=== PATIENT | female | born 1995 | race Hispanic/Latino ===

== ENCOUNTER 2016-12-21 17:20 | Inpatient (IN) | payer MEDICAID ==
[~2016-12-21] VITALS: Ht 154.9 cm; Wt 87.5 kg
[2016-12-21] VITALS (9 sets, daily range): BP systolic 115–123; BP diastolic 57–72
--- NOTE | 2016-12-21 17:15 | NUR ---
, EDC 12/30/16, EGA 38 12/30. PREVIOUS C/S X 1. PT HERE FOR CTX STARTING AROUND 0600, MILD, PAIN OF 2/10. COMES AND GOES, AT TIMES EVERY 5-10 MINUTES. NO LOF OR VAG BLEEDING. + MOVEMENT. SISTER AT SIDE AND SUPPORTIVE. 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 OBTAINED WT, HT, UA/DOA AND PT ON EFM. FHT'S CATAGORY 1. SOFT RESTING TONE, MILD CTX, IRREGULAR, THEN EVERY 3-5 MINUTES. UA SHOWS NO PROTIENUREA AT THIS TIME. SVE DONE, CLOSED THICK AND HIGH. UNABLE TO DETERMINE PRESENTING PART. CALLED DR COMER AND UPDATED ON PT CONDITION AND HX. OBTAINED ORDERS FOR IV FLUID BOLUS OF 500 ML THEN TO RUN AT 125 ML/HR. PT INFORMED OF THIS PLAN OF CARE.
[~2016-12-21 17:20] MED LIST: IRON325 M1 PO; LORTAB 5/3255 MG; PRE-NATAL
[2016-12-21 18:10] LABS: URINE BILIRUBIN - DIPSTICK NEGATIVE (NEGATIVE); URINE BLOOD DIPSTICK NEGATIVE (NEGATIVE); URINE CLARITY CLEAR; URINE COLOR YELLOW; URINE GLUCOSE - DIPSTICK NEGATIVE (NEGATIVE); URINE KETONE NEGATIVE (NEGATIVE); URINE NITRITE - DIPSTICK NEGATIVE (Negative); URINE PROTEIN - DIPSTICK NEGATIVE (NEG-TRACE); URINE UROBILINOGEN - DIPSTICK 0.2 E.U./dL (0.2)
[2016-12-21 18:11] LABS: BARBITURATES NEGATIVE (NEGATIVE); COCAINE NEGATIVE (NEGATIVE); METHADONE NEGATIVE (NEGATIVE); OXCYCODONE NEGATIVE (NEGATIVE); TETRAHYDROCANNABIONOL NEGATIVE (NEGATIVE); TRICYLIC ANTIDEPRESSANTS NEGATIVE (NEGATIVE); URINE LEUK ESTERASE SMALL (NEGATIVE)
--- NOTE | 2016-12-21 18:25 | NUR ---
IV SITE INITIATED ORDERED, PATIENT TOLERATED WELL, AND SITE APPEARS HEALTHY WITHOUT PAIN, REDNESS, OR SWELLING.
[2016-12-21 18:40] LABS: URINE SQUAMOUS EPITHELIAL CELL FEW EPI/hpf (0-FEW)
--- NOTE | 2016-12-21 18:45 | NUR ---
REPORTED OFF TO ZOIE MCKEON RN.
--- NOTE | 2016-12-21 18:57 | NUR ---
REPORT RECEIVED FROM PAULA MCCARTNEY RN. PT RESTING IN BED. IV BOLUS INFUSING. NO CONTRACTIONS PALPATED BUT PT STATES "MY STOMACH IS GETTING HARD ONCE IN A WHILE". DOES NOT HAVE PO HYDRATION AT THIS TIME DUE TO POSSIBILITY OF SURGERY FOR REPEAT . PT HAS NO COMPLAINTS. FRIEND AT BEDSIDE.
--- NOTE | 2016-12-21 20:20 | NUR ---
DR. COMER NOTIFIED OF PT STATUS. NEW ORDERS RECEIVED. PT CONTINUES TO HAVE CONTRACTIONS WHILE LAYING ON LEFT SIDE AND IV FLUIDS INFUSING AT 125CC/HR. WILL DO INTERMITTENT MONITORING PER PHYSICIAN ORDERS.
--- NOTE | 2016-12-21 20:43 | NUR ---
PT OFF MONITOR TO USE RESTROOM AND CHANGE OUT HER BED TO A MORE COMFORTABLE ONE. IV CONTINUES INFUSING AT 125CC/HR PER MED PUMP. IV WNL. NO COMPLAINTS. TAKES PO FLUIDS. PLAN OF CARE DISCUSSED WITH PT. PT HAS NO QUESTIONS. SISTER REMAINS AT BEDSIDE.
--- NOTE | 2016-12-21 22:14 | NUR ---
VISTARIL GIVEN FOR SLEEP. SEE E-MAR FOR DETAIL. REMAINS LT SIDED TILT. FETUS VERY ACTIVE WITH REACTIVE STRIP. CONTINUES TO HAVE MILD CONTRACTIONS WHEN ABDOMEN IS PALPATED. VS STABLE. IV CONTINUES TO INFUSE. VOIDED 475 CLEAR YELLOW URINE. ENCOURAGED TO REST AND NOTIFY THIS NURSE IF CONTRACTIONS START GETTING MORE INTENSE. BOYFRIEND AT BEDSIDE.
[2016-12-22] VITALS (15 sets, daily range): BP systolic 102–129; BP diastolic 46–83
--- NOTE | 2016-12-22 01:55 | NUR ---
PT USES RESTROOM. NO COMPLAINTS. STATES HAVING CONTRACTIONS OCCASSIONALLY. FETUS IS ACTIVE.
--- NOTE | 2016-12-22 03:45 | NUR ---
PT USES RESTROOM. STATES CONTRACTIONS ARE STRONGER AND PAIN IS 4/10. CONTRACTIONS ARE PALPATED BY THIS NURSE AND CONTRACTIONS FEEL MILDER THAN THEY WERE EARLY EVENING. FETUS ACTIVE AND REACTIVE STRIP NOTED. PT DENIES VAGINAL BLEEDING, DISCHARGE OR SROM. IV CONTINUES AT 125CC/HR PER MED PUMP. VS STABLE. ROOM IS COLD BUT PT STATES SHE LIKES IT THAT WAY. BOYFRIEND SLEEPING BEDSIDE.
--- NOTE | 2016-12-22 06:36 | NUR ---
PT RESTING IN BED WITH EYES CLOSED. REMAINS STABLE. REPORT READY FOR DAY SHIFT.
--- NOTE | 2016-12-22 07:00 | NUR ---
report received from yaakov overton. patient off efm. lying in bed awake. efm recommenced. abdomen palpate soft, mild with contraction. no vaginal bleeding or leaking of amniotic fluid. patient rates pain with contraction 2/10. ivf of lr infusing. site wnl. plan to wait for mds evaluation. patient voices no concerns. s/o at bedside.
--- NOTE | 2016-12-22 08:00 | NUR ---
dr holloway on unit. reviews fhr tracing. new orders received.
--- NOTE | 2016-12-22 08:30 | NUR ---
blood drawn from [facility] for labs as ordered.
[2016-12-22 08:56] LABS: HEMATOCRIT 30.3 % (37.0-47.0); IMMATURE GRANULOCYTES 0.4 % (0.0-1.0); MEAN CELL VOLUME 86.3 fL CALC (80.0-100.0); MEAN CORPUSCULAR HGB 28.5 pG CALC (26.0-32.0); NEUT# 3.17 thou/uL (2.00-7.15); RED BLOOD COUNT 3.51 mill/uL (4.20-5.60); RED CELL DISTRI WIDTH 14.1 % (11.5-15.5)
[2016-12-22 09:14] LABS: ALKALINE PHOSPHATASE 139 u/l (38-126); ANION GAP 10 (6-22 (CALC)); BILIRUBIN, TOTAL 0.2 mg/dL (0.0-1.4); BUN 4 mg/dL (7-17); BUN/CREATININE RATIO 11 (12-20 (CALC)); CALCIUM 8.9 mg/dL (8.4-10.2); CARBON DIOXIDE 25 mmol/l (22-30); CHLORIDE 106 mmol/l (95-108); CREATININE 0.4 mg/dL (0.5-1.0); GFR > 60 ML/MIN (>=60 (CALC)); GFR FOR AFR.AMER. > 60 ML/MIN (>=60 (CALC)); GLUCOSE 70 mg/dL (65-105); POTASSIUM 3.8 mmol/l (3.5-5.1); SGOT/AST 15 u/l (14-36); SGPT/ALT 23 u/l (9-52); SODIUM 137 mmol/l (137-146); TOTAL PROTEIN 5.7 g/dL (6.3-8.2)
--- NOTE | 2016-12-22 09:35 | NUR ---
patient was already shaved. ivb of lr commenced for preload to or per anesthesia. medicated as per preop orders. estimation manager at bedside.
--- NOTE | 2016-12-22 09:50 | NUR ---
off monitor to void in bathroom and then to or. see delivery room record.
--- NOTE | 2016-12-22 12:10 | NUR ---
PATIENT TO ROOM FROM PACU, ON STRETCHER, ACCOMPANIED BY PACU STAFF. TRANSFERRED TO BED USING Z SLIDER. MADE COMFORTABLE.IVF, CONTINUOUS PULSE OX MONITORING AND SCDS IN PLACE. POSTOP INSTRUCTIONS REVIEWED. PATIENT VERBALISE UNDERSTANDING. S/O AY BEDSIDE. WILL CONTINUE TO MONITOR.
--- NOTE | 2016-12-22 18:36 | NUR ---
SITTING UP IN BED. PERICARE DONE. MADE COMFORTABLE. DENIES PAIN AT THIS TIME. TOLERATING DIET. NO CONCERNS AT THIS TIME. END OF SHIFT REPORT READY.
--- NOTE | 2016-12-22 18:43 | NUR ---
REPORT RECEIVED FROM Deja FLANAGAN RN ON PT STATUS.
--- NOTE | 2016-12-22 19:50 | NUR ---
CONTINUES TO VISIT WITH FAMILY. HAS NO COMPLAINTS. NO DISTRESS NOTED.
--- NOTE | 2016-12-22 20:45 | NUR ---
PT RESTING IN BED HOLDING . TIRADO DRAINS CLEAR YELLOW URINE. IV LR INFUSING PER MED PUMP AT 125CC/HR. SCDS IN PLACE. PT DENIES PAIN OR DISCOMFORT. ABDOMINAL DRESSING CLEAN AND DRY, NO SHADOWING NOTED. LIGHT RUBRA NOTED ON PAIGE PAD. SIGNIFICANT OTHER AT BEDSIDE.
--- NOTE | 2016-12-22 23:00 | NUR ---
PT SITTING IN BED HOLDING . NO COMPLAINTS. STATES BENADRYL HELPED SOME. ROOM MUCH COOLER. BLANKET TAKEN OFF. DENIES PAIN. CALL LIGHT WITHIN REACH, BED IN LOW POSITION AND UPPER SIDE RAILS UP. REMAINS ON HOURLY OXYGEN SATURATIONS.
--- NOTE | 2016-12-23 01:40 | NUR ---
PT RESTING WITH EYES CLOSED. IN CRIB.
[2016-12-23 03:00] VITALS: BP 117/64
--- NOTE | 2016-12-23 05:58 | NUR ---
CBC DRAWN FROM LEFT ANTICUBITAL WITHOUT DIFFICULTY. PT ASSISTED TO RESTROOM. PERICARE DONE BY PT AFTER INSTRUCTED BY NURSE. MOD RUB NOTED ON PAD WITH THREE 1 CM BLOOD CLOTS ON PAD. TOLERATED AMBULATION WITHOUT DIZZINESS OR WEAKNESS. TIRADO CATHETER REMOVED. IV CONTINUES TO INFUSE PER MED PUMP. DENIES PAIN. BACK TO BED. SCD'S OFF AT THIS TIME. PT HAS NO COMPLAINTS.
[2016-12-23 06:08] VITALS: BP 100/59
[2016-12-23 06:32] LABS: HEMATOCRIT 26.9 % (37.0-47.0); HEMOGLOBIN 8.9 g/dl (12.0-16.0); IMMATURE GRANULOCYTES 0.3 % (0.0-1.0); MEAN CELL VOLUME 86.5 fL CALC (80.0-100.0); MEAN CORPUSCULAR HGB 28.6 pG CALC (26.0-32.0); MEAN CORPUSCULAR HGB CONC 33.1 g/L CALC (32.0-36.0); NEUT# 6.66 thou/uL (2.00-7.15); RED BLOOD COUNT 3.11 mill/uL (4.20-5.60)
--- NOTE | 2016-12-23 07:00 | NUR ---
RECEIVED CARE OF PT.
[2016-12-23 07:20] VITALS: BP 116/66
--- NOTE | 2016-12-23 07:20 | NUR ---
DR COMER IN TO SEE PT, NO NEW ORDERS AT THIS TIME. BREAKFAST TRAY GIVEN. PT WITH NO NAUSEA OR VOMITING.
--- NOTE | 2016-12-23 07:20 | NUR ---
SIGNIFICANT OTHER AT BEDSIDE. PT SITTING UP IN BED WITH INFANT IN ARMS, POSITIVE BONDING NOTED. ASSESSMENT COMPLETED CHARTED. NO INCREASED SOMNOLENCE OR RESPIRATORY DEPRESSION. PT WITH NO QUESTIONS OR CONCERNS AT THIS TIME. PLAN OF CARE REVIEWED. INSTRUCTED TO REMOVE DRESSING IN SHOWER TODAY AND LET IT SOAK WELL BEFORE REMOVING. PT HAS BEEN OUT OF BED TO RESTROOM. RATING PAIN 2/10 AT INCISION. CALL LIGHT WITHIN REACH.
--- NOTE | 2016-12-23 07:30 | NUR ---
LORTAB PO GIVEN FOR PAIN. PT WITH NO MORE REQUESTS.
--- NOTE | 2016-12-23 08:50 | NUR ---
WITH IN ARMS, BOTTLE-FEEDING. WILL CONTINUE TO MONITOR.
--- NOTE | 2016-12-23 09:00 | NUR ---
PT ENCOURAGED TO DRINK PLENTY FLUIDS AND AMBULATE. INSTRUCTED TO COUGH AND DEEP BREATHE. ENCOURAGED TO AMBULATE IN HALLWAY LATER TODAY. PT VERBALIZES UNDERSTANDING.
--- NOTE | 2016-12-23 12:45 | NUR ---
TEMP 99.3 .IV DISCONTINUED, CATHETER INTACT. SITE WNL.
--- NOTE | 2016-12-23 17:00 | NUR ---
PT IN SHOWER. DRESSING SOAKED AND REMOVED BY PT. STERI STRIPS ON. INCISION CARE REVIEWED WITH PT. PAIGE PADS GIVEN. PT DENIES PAIN AT THIS TIME.
--- NOTE | 2016-12-23 18:40 | NUR ---
Report given to Fran Kim RN.
--- NOTE | 2016-12-23 18:40 | NUR ---
REPORT RECEIVED FROM Anneliese ZAMAN RN. PT SITTING IN BED, DENIES NEEDS AT THIS TIME.
[2016-12-23 19:22] VITALS: BP 111/72
--- NOTE | 2016-12-23 19:22 | NUR ---
ASSESSMENT AND VS STABLE CHARTED. BED IN LOW POSITION, CALL LIGHT IN REACH. PAIN MED JUST GIVEN FOR INCISIONAL PAIN AND CRAMPING, RATES 2/10.
--- NOTE | 2016-12-23 22:12 | NUR ---
S/O JUST ARRIVED AND WITH PATIENT AT BEDSIDE.
--- NOTE | 2016-12-24 03:00 | NUR ---
MOTRIN GIVEN FOR C/O PAIN 11/02. ADVISED PT BED WAY TO HELP WITH GAS PAIN WAS WALKING.
[2016-12-24 06:15] VITALS: BP 109/50
--- NOTE | 2016-12-24 06:15 | NUR ---
IN TO CHECK ON PATIENT AND GET VS. VSS CHARTED. RATES PAIN 1/10.
--- NOTE | 2016-12-24 06:30 | NUR ---
REPORT PREPARED FOR ONCOMING SHIFT. PT RESTING AT THIS TIME IN NO APPARENT DISTRESS.
--- NOTE | 2016-12-24 11:43 | NUR ---
DISCHARGE INSTRUCTIONS GIVEN PT VERBALIZES UNDERSTANDING AND ALL QUESTIONS ANSWERED. PT LEFT IN WHEELCHAIR HOLDING
== END 2016-12-24 11:40 | disposition home or self-care (01) | DRG 766 ==
LOC: OB 17:20 → OBOP 17:20 → OB 20:20
PROVIDERS: ADMIT Obstetrics & Gynecology; ATTEND Obstetrics & Gynecology
PROC: 10D00Z1 Extraction of Products of Conception, Low, Open Approach (ICD-10-PCS; principal; 2016-12-22)
PROC: 0UN40ZZ Release Uterine Supporting Structure, Open Approach (ICD-10-PCS; 2016-12-22)
DX: O34.211 Maternal care for low transverse scar from previous cesarean delivery (principal); N73.6 Female pelvic peritoneal adhesions (postinfective); O75.82 Onset (spontaneous) of labor after 37 completed weeks of gestation but before 39 completed weeks gestation, with delivery by (planned) cesarean section; N85.8 Other specified noninflammatory disorders of uterus; O99.89 Other specified diseases and conditions complicating pregnancy, childbirth and the puerperium; Z3A.38 38 weeks gestation of pregnancy; Z37.0 Single live birth
CPT/HCPCS: J2270